=== PATIENT | male | born 1975 | race Caucasian/White ===

== ENCOUNTER 2017-08-29 14:21 | Emergency (ER) | payer OTHER ==
[2017-08-29] MEDS ORDERED: HYDROmorphone 1 MG/ML Syringe IM ONE (15:36)
--- NOTE | 2017-08-29 16:12 | EDM.PDOC ---
ED HPI GENERAL MEDICAL PROBLEM - General Chief Complaint: Flank Pain Stated Complaint: FALL Time Seen by Provider: 08/29/17 15:15 Source of Information: Reports: Patient, Family History Limitations: Reports: No Limitations - History of Present Illness INITIAL COMMENTS - FREE TEXT/NARRATIVE: 42-year-old male slipped on the ice and fell onto some aluminum tools, sawhorses , very hard onto his right flank. His wind was knocked out for quite some time, he felt nauseated, and now is having significant flank pain with a burning sensation. Some pain with breathing. Onset: Sudden Duration: Hour(s): (Within the last 2 hours) Location: Reports: Back (Right flank area) Severity: Moderate Worsens with: Reports: Movement Associated Symptoms: Denies: Confusion, Chest Pain, Cough, Diaphoresis, Loss of Appetite, Nausea/Vomiting, Shortness of Breath - Related Data Allergies Allergy/AdvReac Type Severity Reaction Status Date / Time No Known Allergies Allergy Verified 08/29/17 15:02 Home Meds: Home Meds Acetaminophen [Tylenol] 650 mg PO Q6H PRN 04/26/17 [History] Naproxen [IJD: Naproxen] 500 mg PO BIDAC 04/26/17 [History] SUMAtriptan [Imitrex] 50 mg PO ASDIRECTED PRN 04/26/17 [History] Sertraline [Zoloft] 50 mg PO BEDTIME 08/29/17 [History] Past Medical History Musculoskeletal History: Reports: Other (See Below) Other Musculoskeletal History: left knee pain Neurological History: Reports: Head Trauma, Migraines Psychiatric History: Reports: Depression Other Psychiatric History: 2nd attempt at self harm related to PTSD Dermatologic History: Reports: Other (See Below) Other Dermatologic History: hives Social & Family History - Tobacco Use Smoking Status *Q: Former Smoker Years of Tobacco use: 1 Packs/Tins Daily: 1 Used Tobacco, but Quit: Yes Month Tobacco Last Used: september - Caffeine Use Caffeine Use: Reports: Coffee - Alcohol Use Days Per Week of Alcohol Use: 7 Number of Drinks Per Day: 3 Total Drinks Per Week: 21 - Recreational Drug Use Recreational Drug Use: No Drug Use in Last 12 Months: Yes Recreational Drug Type: Reports: Marijuana/Hashish Recreational Drug Use Frequency: Monthly Recreational Drug Last Use: [facility] DORENE PRASAD GENERAL - Review of Systems Review Of Systems: See Below Constitutional: Denies: Fever, Chills Respiratory: Reports: Pleuritic Chest Pain (A mild amount of pleuritic chest pain only with a deep breath). Denies: Shortness of Breath Cardiovascular: Reports: Chest Pain (Only with a deep breath) GI/Abdominal: Denies: Abdominal Pain, Nausea, Vomiting : Reports: No Symptoms Musculoskeletal: Reports: Other (Some pain radiating down the right flank to the right buttock but not down the extremities) Skin: Reports: Bruising (A small amount of erythema has developed on the right flank) Neurological: Reports: Paresthesia (A burning sensation on the skin has been persistent on the right flank and right buttock) ED EXAM, GENERAL - Physical Exam Exam: See Below Exam Limited By: No Limitations General Appearance: Alert, Mild Distress (Fairly uncomfortable) Neck: Supple, Non-Tender Respiratory/Chest: No Respiratory Distress, Lungs Clear Cardiovascular: Regular Rate, Rhythm GI/Abdominal: Soft, Non-Tender Back Exam: CVA Tenderness (R) (Very sore in the right CVA area and down into the lower right flank). No: Vertebral Tenderness Extremities: Normal Inspection Course - Vital Signs Last Recorded V/S: Last Vital Signs Temp 97.5 F 08/29/17 16:15 Pulse 71 08/29/17 16:15 Resp 16 08/29/17 16:15 BP 113/67 08/29/17 16:15 Pulse Ox 99 08/29/17 16:15 - Orders/Labs/Meds Labs: Laboratory Tests 08/29/17 08/29/17 Range/Units 15:44 15:44 WBC 7.9 (4.5-11.0) K/uL RBC 4.79 (4.30-5.90) M/uL Hgb 14.8 (12.0-15.0) g/dL Hct 41.3 (40.0-54.0) % MCV 86 (80-98) fL MCH 31 (27-31) pg MCHC 36 (32-36) % Plt Count 197 (150-400) K/uL Neut % (Auto) 70 H (36-66) % Lymph % (Auto) 20 L (24-44) % [place] % (Auto) 8 H (2-6) % Eos % (Auto) 2 (2-4) % Baso % (Auto) 0 (0-1) % Sodium 140 (140-148) mmol/L Potassium 3.8 (3.6-5.2) mmol/L Chloride 104 (100-108) mmol/L Carbon Dioxide 28 (21-32) mmol/L Anion Gap 7.7 (5.0-14.0) mmol/L BUN 16 (7-18) mg/dL Creatinine 1.2 (0.8-1.3) mg/dL Est Cr Clr Drug Dosing 80.19 mL/min Estimated GFR (MDRD) > 60 (>60) Glucose 104 (74-106) mg/dL Calcium 9.0 (8.5-10.1) mg/dL Meds: Medications Discontinued Medications Generic Name Dose Route Start Last Admin Trade Name Gerardo PRN Reason Stop Dose Admin Hydromorphone HCl 1 mg 08/29/17 15:36 08/29/17 15:48 Dilaudid IM 08/29/17 15:37 1 mg ONETIME ONE Administration Sodium Chloride 100 mls @ 3 mls/sec 08/29/17 16:45 08/29/17 16:49 Normal Saline IV 3 mls/sec ASDIRECTED CHEN Administration Iopamidol 147 ml 08/29/17 16:45 08/29/17 16:49 Isovue-300 (61%) IV 147 ml . DIRECTED CHEN Administration Ketorolac Tromethamine 30 mg 08/29/17 17:08 08/29/17 17:17 Toradol IVPUSH 08/29/17 17:09 30 mg ONETIME ONE Administration - Re-Assessments/Exams Free Text/Narrative Re-Assessment/Exam: 08/29/17 17:41 CBC and BMP were obtained. An IV was placed and the patient was given normal saline after 1 mg of Dilaudid IM. After labs returned normal, the patient had an abdomen and pelvis CT scan with IV contrast which was also normal. He was then given 30 mg of Toradol IV and discharged with 10 additional doses of hydrocodone and encouraged to increase activity as tolerated. He can always return if symptoms worsen or he develops other concerns. Departure - Departure Time of Disposition: 18:09 Disposition: Home, Self-Care 01 Condition: Good Clinical Impression: Contusion of flank and back Qualifiers: Encounter type: initial encounter Qualified Code(s): S30.1XXA - Contusion of abdominal wall, initial encounter - Discharge Information Instructions: Contusion, [id number] Referrals: Ward Brannon MD [Primary Care Provider] - Forms: ED Department Discharge Care Plan Goals: Take a regular dose of ibuprofen or naproxen and add stronger pain medications as directed if needed. Ice to the sore area for the first 48 hours may be beneficial, then heat is okay. Increase activity as tolerated and return anytime if symptoms worsen or you develop other concerns.
[2017-08-29 16:16] VITALS: BP 113/67
[2017-08-29] MEDS ORDERED: Iopamidol 612 MG/ML 150 ML Bottle IV SCH (16:45)
[2017-08-29] MEDS ORDERED: Sodium Chloride 0.9% 100 ML IV SCH (16:45)
[2017-08-29] MEDS ORDERED: Ketorolac 30 MG/ML SDV IVPUSH ONE (17:08)
== END 2017-08-29 18:00 | disposition home or self-care (01) ==
LOC: JP.ED 14:21
DX: S30.1XXA Contusion of abdominal wall, initial encounter (principal); Z87.891 Personal history of nicotine dependence; W00.0XXA Fall on same level due to ice and snow, initial encounter
CPT/HCPCS: 36415; 74177; 80048; 85025; 96372; 96374; 99284; J1170; J1885; J7030

== ENCOUNTER 2017-10-30 05:31 | Day surgery (SDC) | payer OTHER ==
[2017-10-30] MEDS ORDERED: Lactated Ringers 1,000 ML IV SCH (06:30)
[2017-10-30] MEDS ORDERED: ceFAZolin 2 GM in Premix Bag 1 BAG IV ONE (06:30)
[2017-10-30] MEDS ORDERED: Bupivacaine 0.25%/EPINEPHrine 1:200,000 30 ML SDV ONE (06:52)
[2017-10-30] MEDS ORDERED: Povidone-Iodine 10% Soln 118.25 ML Bottle ONE (06:52)
[2017-10-30] MEDS ORDERED: Gentamicin 40 MG/ML 2 ML Vial ONE (06:59)
[2017-10-30] MEDS ORDERED: Neostigmine Methylsulfate 1 MG/ML 5 ML Syringe ONE (07:20)
[2017-10-30] MEDS ORDERED: Rocuronium 50 MG/5 ML Vial ONE (07:20)
[2017-10-30] MEDS ORDERED: Glycopyrrolate 0.2 MG/ML 5 ML MDV ONE (07:20)
[2017-10-30] MEDS ORDERED: Propofol 200 MG/20 ML SDV ONE (07:20)
[2017-10-30] MEDS ORDERED: Ondansetron 4 MG/2 ML SDV ONE (07:20)
[2017-10-30] MEDS ORDERED: Succinylcholine 200 MG/10 ML MDV ONE (07:20)
[2017-10-30] MEDS ORDERED: Dexamethasone 4 MG/ML SDV ONE (07:20)
[2017-10-30] MEDS ORDERED: Lactated Ringers 1,000 ML ONE (08:01)
[2017-10-30] MEDS ORDERED: Ketorolac 60 MG/2 ML SDV ONE (08:59)
[2017-10-30] MEDS ORDERED: Acetaminophen/HYDROcodone 325-5 MG Tab PO ONE (10:05)
[2017-10-30 10:11] VITALS: BP 114/82
--- NOTE | 2017-10-30 13:40 | OR ---
DATE OF PROCEDURE: 10/30/2017 PREOPERATIVE DIAGNOSIS: Left knee anterior cruciate ligament tear. POSTOPERATIVE DIAGNOSIS: Left knee anterior cruciate ligament tear. PROCEDURE: Left knee anterior cruciate ligament reconstruction. SURGEON: Dwain Lee DO TRAFFIC CONTROL SUPERVISOR: OPHELIA Casey. ANESTHESIA: General endotracheal intubation. FLUID: Lactated Ringer solution. ESTIMATED BLOOD LOSS: Less than 10 mL. COMPLICATIONS: None. SPECIMEN: None. DISCHARGE DISPOSITION: Stable to PACU. INSTRUMENTATION: [facility] Visual.ly tibial screw, femoral unmanned aircraft systems roboticist, and allograft. INDICATIONS: The patient is well known to me. He is a and has been having knee pain for quite sometime. We have treated him nonoperatively for over a year with steroid injections. He got to the point where he is barely able to stand. Preoperative imaging confirmed the above-mentioned diagnosis. Risks and benefits of the procedure were explained to the patient, and informed consent was obtained. DETAILS OF PROCEDURE: The patient was seen preoperatively by myself and the Anesthesia staff in the preoperative holding area, where the operative site was marked. He was brought to the operative suite by the Anesthesia staff, where general anesthesia was administered. A well-padded tourniquet was placed on the left thigh. The right lower extremity was placed into a stirrup. The left lower extremity was placed into a gel-padded thigh diaz. The table was dropped. The left lower extremity was then prepped and draped in a sterile manner. Time-out was called, identifying the correct patient, the correct procedure, the correct site, and that antibiotics had begun within an appropriate period of time. A portal on the medial aspect of the patellar tendon just 1 cm distal to the patella was made, and then a lateral portal was made at the junction of the middle and lateral third of the patellar tendon. I then entered with the scope and found very little patellofemoral arthritis. I did not find a tear of the medial or lateral meniscus. I removed the infrapatellar fat pad. There was also large amount of fat pad that I believe was impinging in the joint on the medial side, where he was having the pain. This was removed. I then used an osteotome through the lateral portal to do a wall plasty and then removed that soft tissue using graspers and ricarda. I did use an ablation unit at times to control some small amount of bleeding. After this had been done, I made a horizontal incision 3 fingerbreadths distal to the joint line on the medial side for my tibial tunnel. I then inserted my Potts retractor, extended the knee, and then drilled the pin through. I did not like how it went too far posterior twice, so I just positioned it where I wanted it and then drilled the pin. This provided good position just anterior to the lateral meniscus. I then protected the tip with a curette and then reamed out the distal tibia over the K-wire. After this had been accomplished, I then used a guide that went to the posterior femur and then turned away from the PCL and then reamed this with the [place] reamer to 35 mm. I then removed the reamer and then took out any extra soft tissue with a shaver. We then prepared our allograft on our iOm[place]enne implant and then inserted it and then expanded the implant. I did sona 30 mm to where it was expanded. We then tensioned this using a tensioner, inserted the sleeve for the screw, and then, in approximately 20 degrees extension, placed our tibial screw. I then removed the tensioner and confirmed that there was a solid anterior stop with anterior drawer. We then let the rest of the fluid out of the knee and then closed our incisions with nylon sutures. We placed a sterile dressing and allowed the patient to awaken from anesthesia and taken to the PACU in stable condition. Physician psychological assistant, Carmen Jordan NP, played an essential role in assisting in this case, helping to position the patient, retract structures as needed, as well as suturing and cutting sutures as indicated. Her presence improved patient's safety and decreased operative time. Dwain Lee DO /[id number]
== END 2017-10-30 10:45 | disposition home or self-care (01) ==
LOC: JP.SDS 05:31
PROVIDERS: ATTEND Orthopaedic Surgery
DX: S83.512A Sprain of anterior cruciate ligament of left knee, initial encounter (principal); F32.9 Major depressive disorder, single episode, unspecified; Z79.899 Other long term (current) drug therapy; X58.XXXA Exposure to other specified factors, initial encounter
CPT/HCPCS: 29888; A9270; C1776; J0330; J0690; J1100; J1580; J1885; J2405; J2704; J2710; J3010; J7120

== ENCOUNTER 2019-12-03 14:52 | Emergency (ER) | payer OTHER ==
[2019-12-03 15:08] VITALS: BP 101/72; PULSE 103
[2019-12-03] MEDS ORDERED: Ketorolac 60 MG/2 ML SDV IM ONE (15:22)
[2019-12-03] MEDS ORDERED: Acetaminophen 500 MG Tab PO ONE (15:23)
--- NOTE | 2019-12-03 15:28 | EDM.PDOC ---
ED HPI GENERAL MEDICAL PROBLEM - General Chief Complaint: Lower Extremity Injury/Pain Stated Complaint: L KNEE PAIN Time Seen by Provider: 12/03/19 15:15 Source of Information: Reports: Patient History Limitations: Reports: Other (incomplete medical records) - History of Present Illness INITIAL COMMENTS - FREE TEXT/NARRATIVE: 44 yo male with a pHx of L knee ACL tear presents with knee pain and swelling. Denies acute injury. Was to the clinic and asked for an MRI from Dr. Brannon and is not sure if this has been scheduled or not. Needs something for pain. Took only a muscle relaxer so far for this. Onset: Gradual Duration: Day(s):, Getting Worse Location: Reports: Lower Extremity, Left Quality: Reports: Ache Severity: Moderate Improves with: Reports: Rest Worsens with: Reports: Movement Context: Reports: Other (see HPI) Associated Symptoms: Reports: No Other Symptoms Treatments SEASONING SPRAYER: Reports: Other (see below) (muscle relaxer) - Related Data Allergies Allergy/AdvReac Type Severity Reaction Status Date / Time No Known Allergies Allergy Verified 10/30/17 05:52 Home Meds: Home Meds Acetaminophen [Tylenol] 650 mg PO Q6H PRN 04/26/17 [History] Naproxen [IJD: Naproxen] 500 mg PO BIDAC 04/26/17 [History] SUMAtriptan [Imitrex] 50 mg PO ASDIRECTED PRN 04/26/17 [History] Acetaminophen/HYDROcodone [[place] 325-5 MG] 1 - 2 tab PO Q6H PRN #12 tab [Rx] Past Medical History Musculoskeletal History: Reports: Other (See Below) Other Musculoskeletal History: s/p lt ACL repair Neurological History: Reports: Head Trauma, Migraines Psychiatric History: Reports: Depression, PTSD Other Psychiatric History: 2nd attempt at self harm related to PTSD Endocrine/Metabolic History: Reports: Obesity/BMI 30+ Dermatologic History: Reports: Other (See Below) Other Dermatologic History: hives - Infectious Disease History Infectious Disease History: Reports: Chicken Pox - Past Surgical History Head Surgeries/Procedures: Reports: None Endocrine Surgical History: Reports: None Neurological Surgical History: Reports: None Musculoskeletal Surgical History: Reports: None Dermatological Surgical History: Reports: None Social & Family History - Family History Family Medical History: Noncontributory - Caffeine Use Caffeine Use: Reports: Coffee Review of Systems - Review of Systems Review Of Systems: See Below Constitutional: Reports: No Symptoms Musculoskeletal: Reports: Joint Pain (L knee), Joint Swelling (L knee) Skin: Reports: No Symptoms ED EXAM, GENERAL - Physical Exam Exam: See Below Exam Limited By: No Limitations General Appearance: Alert, WD/WN, No Apparent Distress Extremities: Limited Range of Motion (due to L knee effusion), Other (medial joint line pain. No apparent laxity.). No: Normal Inspection, Normal Range of Motion, Non-Tender, Increased Warmth Neurological: Alert, Oriented, CN II-XII Intact, Normal Cognition, No Motor/ Sensory Deficits Psychiatric: Normal Affect, Normal Mood Skin Exam: Warm, Dry, Intact, Normal Color, No Rash Course - Vital Signs Text/Narrative:: 6 inch TA applied. Crutches given. Last Recorded V/S: Last Vital Signs Temp 37.2 C 12/03/19 15:07 Pulse 103 H 12/03/19 15:07 Resp 16 12/03/19 15:07 BP 101/72 12/03/19 15:07 Pulse Ox 95 12/03/19 15:07 - Orders/Labs/Meds Meds: Medications Discontinued Medications Generic Name Dose Route Start Last Admin Trade Name Freq PRN Reason Stop Dose Admin Acetaminophen 1,000 mg 12/03/19 15:23 Tylenol Extra Strength PO 12/03/19 15:24 ONETIME ONE Ketorolac Tromethamine 60 mg 12/03/19 15:22 Toradol IM 12/03/19 15:23 ONETIME ONE Departure - Departure Time of Disposition: 15:45 Disposition: Home, Self-Care 01 Condition: Fair Clinical Impression: Knee effusion, left Acute medial meniscus tear Qualifiers: Encounter type: initial encounter Laterality: left Qualified Code(s): S83.242A - Other tear of medial meniscus, current injury, left knee, initial encounter Medial meniscus tear Qualifiers: Tear current or old: old Meniscus tear of knee type: unspecified type Laterality: left Qualified Code(s): M23.204 - Derangement of unspecified medial meniscus due to old tear or injury, left knee - Discharge Information *PRESCRIPTION DRUG MONITORING PROGRAM REVIEWED*: No *COPY OF PRESCRIPTION DRUG MONITORING REPORT IN PATIENT MAXIMUS: No Prescriptions: Acetaminophen/HYDROcodone [[place] 325-5 MG] 1 - 2 tab PO Q6H PRN #12 tab PRN Reason: Pain Instructions: Crutch Use, Adult, [id number], Meniscus Tear Referrals: Ward Brannon MD [Primary Care Provider] - Forms: ED Department Discharge Additional Instructions: Take ibuprofen 600 mg every 6 hrs with food for pain relief. Add either acetaminophen 1000 mg every 6 hrs or [place] for added relief. Crutch walking with no weight bearing. Someone will call you for an orthopedic appt. Wear TA for support. Sepsis Event Note - Focused Exam Vital Signs: Vital Signs Temp Pulse Resp BP Pulse Ox 12/03/19 15:07 37.2 C 103 H 16 101/72 95 Date Exam was Performed: 12/03/19 Time Exam was Performed: 15:38
== END 2019-12-03 16:18 | disposition home or self-care (01) ==
LOC: JP.ED 14:52
DX: M23.204 Derangement of unspecified medial meniscus due to old tear or injury, left knee (principal); G43.909 Migraine, unspecified, not intractable, without status migrainosus; E66.9 Obesity, unspecified; Z68.34 Body mass index [BMI] 34.0-34.9, adult
CPT/HCPCS: 96372; 99283; A9270; J1885

== ENCOUNTER 2019-12-30 05:56 | Day surgery (SDC) | payer OTHER ==
[2019-12-30] MEDS ORDERED: Nozin Nasal Sanitizer NASBOTH ONE (06:30)
[2019-12-30] MEDS ORDERED: Lactated Ringers 1,000 ML IV SCH (06:30)
[2019-12-30] MEDS ORDERED: ceFAZolin 2 GM in Premix Bag 1 BAG IV ONE (06:30)
[2019-12-30] MEDS ORDERED: Bupivacaine 0.5% 30 ML SDV ONE (06:41)
[2019-12-30] MEDS ORDERED: Ondansetron 4 MG/2 ML SDV ONE (07:19)
[2019-12-30] MEDS ORDERED: Dexamethasone 4 MG/ML SDV ONE (07:19)
[2019-12-30] MEDS ORDERED: fentaNYL 250 MCG/5 ML SDV ONE ×2 (07:19→10:42)
[2019-12-30] MEDS ORDERED: Neostigmine Methylsulfate 1 MG/ML 5 ML Syringe ONE (07:19)
[2019-12-30] MEDS ORDERED: Rocuronium 50 MG/5 ML Vial ONE (07:19)
[2019-12-30] MEDS ORDERED: Glycopyrrolate 0.2 MG/ML 5 ML MDV ONE (07:19)
[2019-12-30] MEDS ORDERED: Propofol 200 MG/20 ML SDV ONE (07:19)
[2019-12-30] MEDS ORDERED: Lactated Ringers 1,000 ML ONE (09:58)
[2019-12-30] MEDS ORDERED: Acetaminophen/HYDROcodone 325-10 MG Tab PO ONE ×2 (11:58→12:25)
[2019-12-30] MEDS ORDERED: Ondansetron 4 MG/2 ML SDV IVPUSH ONE (12:31)
[2019-12-30 13:06] VITALS: BP 119/85; PULSE 93
--- NOTE | 2020-01-06 18:38 | OR ---
DATE OF PROCEDURE: 12/30/2019 SURGEON: Jose Luis Alonzo MD PREOPERATIVE DIAGNOSIS: Failed anterior cruciate ligament graft, left knee. POSTOPERATIVE DIAGNOSES: Failed anterior cruciate ligament graft, left knee. Chondromalacia, patellofemoral joint, grade 2. PROCEDURE: Revision anterior cruciate ligament reconstruction using bone- patellar tendon- bone allograft. ANESTHESIA: General. INDICATIONS: Servando is a 44-year-old gentleman who had previously undergone ACL reconstruction using soft tissue allograft. He had failure of the graft postoperatively and has had persistent instability for the past couple of years. It has gotten progressively worse. He has intermittent episodes of giving way and a constant dull pain with intermittent sharper pain. Examination and imaging are consistent with failure of previous ACL graft. He now presents for revision reconstruction. Risks, benefits, potential complications of the procedure were discussed. DESCRIPTION OF PROCEDURE: After adequate anesthesia was obtained, the patient was placed supine with a tourniquet about the left upper thigh. Left leg was prepped and draped in a sterile fashion. Leg was exsanguinated and tourniquet inflated to 300 mmHg pressure. Standard inferior, anterior, medial, lateral portals were established. Scope was introduced and the knee was examined. This revealed some grade 2 changes in the patellofemoral joint, primarily on the trochlea. No full-thickness cartilage loss. Patella tracked well with no evidence of malalignment. Medial compartment showed some minor fraying along the free edge of the medial meniscus. Also had some minor chondromalacia in the medial femoral condyle, grade 1 and grade 2. ACL showed complete failure with suture material present within the intercondylar notch. Lateral compartment showed an intact meniscus. No fraying and no articular cartilage damage. Using combination of a punch basket and shaver, the remainder of the previous ACL was debrided. There was some overgrowth of the notch and a notchplasty was performed using combination of curette and a areli. This allowed good visualization of the femoral tunnel. Femoral tunnel position was adequate. The previous incision over the tibia was utilized. This was taken down through the subcutaneous tissues to the level of the tibial metaphysis. A point was selected slightly medial to the previous tunnel in an attempt to avoid the hardware in place. ACL guide was placed through the medial portal and set to come out slightly more anterior than the previous tunnel. A guide pin was then drilled and position was found to be quite good. Curette was placed over the top of the guide pin to prevent penetration and a 10 mm reamer was then placed over the guide pin and drilled up into the joint. Loose fragments were removed. Attention was then returned to the femoral notch. Soft tissues were cleared from around the previous fixation device. The screw mechanism for the AperFix device was localized. An attempt was made to place the highway truck driver into this, however, due to the different angle used for the tibial tunnel, this could not be readily accomplished. Guide pin was then placed through the tibial tunnel and into the femoral tunnel lateral to the AperFix device and brought out through the skin. Beginning with a 6 mm reamer, tunnel was then reamed to a depth of 35 mm up to approximately 9 mm. This allowed some motion of the AperFix device and a pituitary ronguer was then utilized to unscrew the metal pin and the remaining peak portions of the device were then removed. The tunnel was then further reamed to a size 10. Attention was then turned to the patellar tendon allograft. This was measured and cut down to a size 11 bone plug on each end. Drill holes were placed through each bone plug and guide sutures were then placed with FiberWire sutures used for the femoral plug , Ethibond used for the tibial. Graft was then kept moist on the back table and attention was returned to the knee. A 10.5 mm reamer was then placed over this guide pin. Both tunnels were just slightly undersized to allow some press-fit on the graft. The Rigidfix guide was then placed and set to 35 mm in the tunnel. Two lateral peg guides were drilled into the femur. Rigidfix guide was then removed. The graft was then passed through the tibial tunnel and into the femoral tunnel to the appropriate depth, which was visualized with the scope. Drill was then passed through the 2 guides and the 2 transfixing pins were then placed. Knee was taken through range of motion and while tensioning the graft, the graft became dislodged. Further evaluation revealed that the bone plug had settled into the space occupied by the previous AperFix device and that the transfixing pins had not penetrated into the bone plug. Graft was then removed. A guide pin was then placed up into the space left by the AperFix device in a [place] screw was then screwed up into this. A long guide pin was then replaced adjacent to this and starting with the smaller reamers and reaming up slowly, the tunnel was reamed once again to a depth of 35 mm. The Rigidfix device was placed once again and 2 cannulas were again placed. The graft was then passed with the snug fit adjacent to the interference screw. Drill was then placed through the cannulas and through the bone graft and transfixing pins were placed. Knee was again taken through range of motion with tension and no motion was noted with the solid fixation. A guide pin was then placed into the tibial tunnel and a tap was utilized. The knee was then slightly flexed and a posterior drawer applied with tension on the graft and a 10 x 35 mm [place]erie interference screw was placed with good fixation. Scope was reintroduced into the knee. Graft was in good position with excellent tension. There was no evidence of impingement with full extension. All loose fragments were removed. Knee was drained and the scope was withdrawn. Small portion of the tibial bone plug, which was proud over the tibia was removed with a rongeur. Tibial incision was then closed with 2-0 Vicryl and a running 3-0 Monocryl. Port sites were closed with 3-0 Monocryl and Steri-Strips were applied. All wounds were then injected with Marcaine and a sterile dressing was applied. The patient tolerated the procedure well. There were no complications. He was taken from the operating room in stable condition. Jose Luis Alonzo MD /[id number]
== END 2019-12-30 13:40 | disposition home or self-care (01) ==
LOC: JP.SDS 05:56
PROVIDERS: ATTEND Specialist
DX: T84.490A Other mechanical complication of muscle and tendon graft, initial encounter (principal); S83.512D Sprain of anterior cruciate ligament of left knee, subsequent encounter; S83.242D Other tear of medial meniscus, current injury, left knee, subsequent encounter; M22.42 Chondromalacia patellae, left knee; G43.909 Migraine, unspecified, not intractable, without status migrainosus; E66.9 Obesity, unspecified; X58.XXXD Exposure to other specified factors, subsequent encounter; Z68.33 Body mass index [BMI] 33.0-33.9, adult
CPT/HCPCS: 29888; 36415; 80053; 85027; A9270; C1713; J0690; J1100; J2405; J2704; J2710; J3010; J3490; J7120

== ENCOUNTER 2020-04-13 05:59 | Day surgery (SDC) | payer OTHER ==
[2020-04-13] MEDS ORDERED: Bupivacaine 0.5% 30 ML SDV ONE (06:54)
[2020-04-13] MEDS ORDERED: Lactated Ringers 1,000 ML IV SCH (07:00)
[2020-04-13] MEDS ORDERED: Nozin Nasal Sanitizer NASBOTH ONE (07:00)
[2020-04-13] MEDS ORDERED: Dexamethasone 4 MG/ML SDV ONE (07:13)
[2020-04-13] MEDS ORDERED: Ondansetron 4 MG/2 ML SDV ONE (07:13)
[2020-04-13] MEDS ORDERED: Rocuronium 50 MG/5 ML Vial ONE (07:13)
[2020-04-13] MEDS ORDERED: Neostigmine Methylsulfate 1 MG/ML 5 ML Syringe ONE (07:13)
[2020-04-13] MEDS ORDERED: Propofol 200 MG/20 ML SDV ONE (07:13)
[2020-04-13] MEDS ORDERED: Glycopyrrolate 0.2 MG/ML 5 ML MDV ONE (07:13)
[2020-04-13] MEDS ORDERED: fentaNYL 250 MCG/5 ML SDV ONE (07:13)
[2020-04-13] MEDS ORDERED: ceFAZolin 2 GM in Premix Bag 1 BAG IV ONE (07:15)
[2020-04-13] MEDS ORDERED: Acetaminophen/HYDROcodone 325-5 MG Tab PO ONE (09:19)
[2020-04-13 10:25] VITALS: BP 108/75; PULSE 56
--- NOTE | 2020-04-13 13:21 | OR ---
DATE OF PROCEDURE: 04/13/2020 SURGEON: Jose Luis Alonzo MD PREOPERATIVE DIAGNOSIS: Complex tear of medial meniscus, left knee. POSTOPERATIVE DIAGNOSES: 1. Complex tear of medial meniscus, left knee. 2. Partial tear of anterior cruciate ligament graft. 3. 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 PROCEDURES: Arthroscopy of left knee with partial medial meniscectomy and chondroplasty of medial femoral condyle and trochlea. INDICATIONS: Servando is a 45-year-old male with a history of previous knee injuries, including ACL tear with reconstruction and a revision ACL reconstruction. He was doing well until he jumped onto his left knee, experiencing pain in the medial aspect. MRI reveals a complex tear of the medial meniscus. ACL graft appears to be intact. He is therefore taken to the operating room for arthroscopy of the left knee with partial meniscectomy versus repair of the medial meniscus. Risks, benefits, and potential complications were discussed. DESCRIPTION OF PROCEDURE: After adequate anesthesia was obtained, the patient was placed supine with a tourniquet about the left upper thigh. Left leg was prepped and draped in a sterile fashion. Leg was exsanguinated and tourniquet inflated to 300 mmHg. Standard inferior, medial and lateral portals were established. Patellofemoral joint was inspected, which revealed intact cartilage on the patella. However, the trochlea, central portion, showed grade 2 and 3 changes with some loose articular flaps. No full-thickness loss. This was an area measuring approximately 1 cm x 1.5 cm. Shaver was introduced and light debridement was done over the trochlea, removing the loose chondral flaps. Moving into the medial compartment, a complex tear of the posterior horn up to the midbody was noted. Grade 2 and early grade 3 changes were noted of the medial femoral condyle. Shaver was used to perform a chondroplasty of medial femoral condyle, removing all loose fragments. A parrot- beak-type flap was debrided from the meniscus, revealing a horizontal cleavage extension with further degenerative-type tear, more into the posterior horn. This was debrided back to a stable margin with a combination of punch baskets and shaver. All loose fragments were removed. Examination of the intercondylar notch revealed a partial tear of the ACL graft, some of the anterior fibers. The majority of the graft, however, was intact. Approximately, 75% to 80% of the graft remained. Torn fibers were debrided with a shaver. Lateral compartment showed no damage to the meniscus or articular surfaces. The knee was inspected once again. All loose fragments were removed. Knee was drained. Scope was withdrawn. Port sites were closed in a standard fashion and sterile dressing was applied. Prior to application of the dressing, knee was infiltrated with 0.25% Marcaine. The patient tolerated the procedure well. There were no complications. He was taken from the operating in stable condition. Jose Luis Alonzo MD /[id number]
== END 2020-04-13 10:30 | disposition home or self-care (01) ==
LOC: JP.SDS 05:59
PROVIDERS: ATTEND Specialist
DX: S83.232A Complex tear of medial meniscus, current injury, left knee, initial encounter (principal); S83.512A Sprain of anterior cruciate ligament of left knee, initial encounter; M94.262 Chondromalacia, left knee; F43.10 Post-traumatic stress disorder, unspecified; E66.9 Obesity, unspecified; Z68.34 Body mass index [BMI] 34.0-34.9, adult; X58.XXXA Exposure to other specified factors, initial encounter
CPT/HCPCS: 29881; 36415; 80048; 85027; A9270; J0690; J1100; J2405; J2704; J2710; J3010; J3490; J7120

== ENCOUNTER 2020-11-16 08:14 | Day surgery (SDC) | payer OTHER ==
[2020-11-16] MEDS ORDERED: Nozin Nasal Sanitizer NASBOTH ONE (08:20)
[2020-11-16] MEDS ORDERED: ceFAZolin 2 GM in Premix Bag 1 BAG IV ONE (08:20)
[2020-11-16] MEDS ORDERED: fentaNYL 250 MCG/5 ML SDV ONE ×2 (08:28→11:22)
[2020-11-16] MEDS ORDERED: Ondansetron 4 MG/2 ML SDV ONE (08:29)
[2020-11-16] MEDS ORDERED: Rocuronium 50 MG/5 ML Vial ONE (08:29)
[2020-11-16] MEDS ORDERED: Succinylcholine 200 MG/10 ML MDV ONE (08:29)
[2020-11-16] MEDS ORDERED: Propofol 200 MG/20 ML SDV ONE (08:29)
[2020-11-16] MEDS ORDERED: Dexamethasone 4 MG/ML SDV ONE (08:29)
[2020-11-16] MEDS ORDERED: Neostigmine Methylsulfate 1 MG/ML 5 ML Syringe ONE (08:29)
[2020-11-16] MEDS ORDERED: Glycopyrrolate 0.2 MG/ML 5 ML MDV ONE (08:29)
[2020-11-16] MEDS ORDERED: Lactated Ringers 1,000 ML IV SCH (09:00)
[2020-11-16] MEDS ORDERED: Bupivacaine 0.5% 30 ML SDV ONE (10:02)
[2020-11-16] MEDS ORDERED: Acetaminophen/oxyCODONE 325-5 MG Tab PO ONE (13:40)
[2020-11-16 14:15] VITALS: BP 125/86; PULSE 76
--- NOTE | 2020-11-21 20:02 | OR ---
DATE OF PROCEDURE: 11/16/2020 SURGEON: Jose Luis Alonzo MD PREOPERATIVE DIAGNOSES: 1. Partial anterior cruciate ligament tear, right knee. 2. Medial meniscus tear, right knee. POSTOPERATIVE DIAGNOSES: 1. Severe partial anterior cruciate ligament tear, right knee. 2. Chondromalacia, medial femoral condyle, grade 3. PROCEDURES: 1. Arthroscopy, right knee with arthroscopic-assisted anterior cruciate ligament reconstruction using [id number] allograft. 2. Chondroplasty, medial femoral condyle. ASSISTANT COUNTY ENGINEER: EB Gutierrez. ANESTHESIA: General. INDICATIONS: Servando is a 45-year-old gentleman who sustained an injury to his right knee resulting in persistent pain and sensation of instability with giving way and catching. Examination and imaging are consistent with an oblique tear of the medial meniscus and at least a partial tear of the ACL. He has moderate laxity on Freeman and drawer. Now presents for arthroscopy of the right knee with evaluation of the medial meniscus and probable repair as well as evaluation of the ACL and reconstruction as necessary. Risks, benefits, potential complications of the procedure were discussed. DESCRIPTION OF PROCEDURE: After adequate anesthesia was obtained, patient placed supine with a tourniquet about the right upper thigh. Right leg was prepped and draped in a sterile fashion. Leg was exsanguinated and tourniquet inflated to 300 mmHg pressure. Assistance of physician administrative sales assistant was utilized for placement of the ACL graft, graft preparation and assistance with drilling and scope visualization during the procedure. Anterior, medial and lateral portals were established. Scope was introduced. The knee was inspected. This revealed intact articular cartilage on the patella and trochlear groove. Medial compartment revealed grade 2 and 3 changes in medial femoral condyle with a flap of articular cartilage more in the posterior aspect. Inspection of the medial meniscus revealed no evidence of instability and the region of the previous tear noted on the MRI was thoroughly probed and inspected and found to have healed. The scope was introduced and a chondroplasty was performed of the medial femoral condyle, removing loose articular flap and smoothing the edges as best as possible. Evaluation of intercondylar notch revealed the ACL to be lax and at least a tear of the anteromedial bundle which had scarred down on to the posterior bundle and PCL. Visualization of the ACL during drawer procedure revealed significant laxity. The scope was withdrawn. The knee was evaluated again with laxity on Freeman and drawer and a positive pivot shift. A decision was made to proceed with the ACL reconstruction. The scope was reintroduced. The lateral compartment was evaluated and the articular surfaces and lateral meniscus were intact. The torn segment of the ACL was debrided from the posterolateral notch and delineated the footprint and step-off point posteriorly. ACL guide for the tibia was placed. Incision was made medial of the tibial tuberosity. Guide was secured and the pin was then drilled. This was brought up to the footprint of the ACL. A 10 mm reamer was placed over this with a curette used to prevent penetration of the guide pin and held by the administrative sales assistant. All loose fragments were removed. The scope was then withdrawn and attention was turned to the ACL graft. Rico- patella thawed on the back table and oscillating saw was used to trim the bone blocks down to 10 mm. [place] was then used to shape these into dowels until they had passed through the 10 mm spacer. Drill holes were placed through each of the bone blocks and FiberWire suture was placed through the femoral side and Ethibond suture through the tibial side. This was then kept moist on the back table. The scope was reinserted and a guide pin was then placed through the tibial tunnel and into the posterolateral femoral tunnel approximately 5 mm anterior to the posterior drop-off point and brought out to the anterior thigh. A 10 mm [place] ring reamer was placed over this and drilled to a depth of 30 mm. Horseshoe guide for the RigidFix was placed over the guide pin and tapped into a depth of 30 mm. 2 cannulas were then drilled into the lateral femoral condyle and the guide was removed. Patellar graft was then delivered into position, secured into the femoral tunnel and position confirmed arthroscopically. Tension was kept on the sutures. Drill was placed through the lateral cannulas and the RigidFix pins were then secured with the plunger. Cannulas were removed. Excellent fixation was obtained with these. Tension was placed through the graft in the tibial tunnel and the knee was cycled through multiple cycles of flexion and extension. A guide pin was then placed into the tibial tunnel. The tunnel was tapped and a 9 x 23 mm Valerie interference screw was placed and buried flush with the tibial surface. The knee was taken through range of motion. The graft was viewed arthroscopically, showed no impingement in the tunnel and excellent tension. He has had no laxity on drawer after completion of procedure. Small portion of the tibial graft was exposed and this was removed with a rongeur. All loose fragments were removed from the knee. Port sites were closed in standard fashion. The graft site over the tibia was closed with 2-0 Vicryl and a running 3-0 Monocryl. Steri-Strips were applied. Incisions were infiltrated with 0.5% Marcaine. Sterile dressing was placed with a light compressive dressing and a knee brace locked at -10 degrees of extension. The patient tolerated procedure very well. There were no complications, taken from the operating stable condition. Jose Luis Alonzo MD /[id number] MTDD
== END 2020-11-16 14:30 | disposition home or self-care (01) ==
LOC: JP.SDS 08:14
PROVIDERS: ATTEND Specialist
DX: S83.511A Sprain of anterior cruciate ligament of right knee, initial encounter (principal); S83.241A Other tear of medial meniscus, current injury, right knee, initial encounter; M94.261 Chondromalacia, right knee
CPT/HCPCS: 29888; 36415; 80053; 85027; A9270; C1713; J0330; J0690; J1100; J2405; J2704; J2710; J3010; J3490; J7120

== ENCOUNTER 2021-05-10 08:30 | Day surgery (SDC) | payer OTHER ==
[~2021-05-10 08:30] MED LIST: Dexamethasone 4 MG/ML SDV ONE; Glycopyrrolate 0.2 MG/ML 5 ML MDV ONE; Lactated Ringers 1,000 ML IV SCH; Neostigmine Methylsulfate 1 MG/ML 5 ML Syringe ONE; Nozin Nasal Sanitizer NASBOTH ONE; Ondansetron 4 MG/2 ML SDV ONE; Propofol 200 MG/20 ML SDV ONE; Rocuronium 50 MG/5 ML Vial ONE; Succinylcholine 200 MG/10 ML MDV ONE; ceFAZolin 2 GM in Premix Bag 1 BAG IV ONE; fentaNYL 250 MCG/5 ML SDV ONE
[2021-05-10] MEDS ORDERED: Bupivacaine 0.5% 30 ML SDV ONE (09:34)
[2021-05-10] MEDS ORDERED: fentaNYL 100 MCG/2 ML SDV ONE (11:54)
[2021-05-10] MEDS ORDERED: Acetaminophen/oxyCODONE 325-5 MG Tab PO PRN (13:34)
[2021-05-10] MEDS ORDERED: Acetaminophen/HYDROcodone 325-5 MG Tab PO PRN (13:55)
[2021-05-10 16:15] VITALS: BP 125/79; PULSE 71
--- NOTE | 2021-05-11 08:14 | PCM.SN.2 ---
- Free Text/Narrative Note: Called patient for update this morning, as he reported bloody saturation of TA wrap dressing last night on left knee. Patient notes his removed saturated dressing, cleaned knee, and applied new pressure dressing and TA wrap to left knee. Denied any purulent drainage. Patient reports icing and elevating left k nee overnight. Dressing is dry and intact this morning. Endorsed pain in left knee, but tolerable with [place]. Denied fevers, chills, nausea, nor emesis. Patient encouraged to keep the pressure dressing and TA wrap on for 24 hours. If dressing becomes saturated again, encouraged to call clinic for further guidance.
--- NOTE | 2021-05-15 18:49 | OR ---
DATE OF PROCEDURE: 05/10/2021 SURGEON: Jose Luis Alonzo MD PREOPERATIVE DIAGNOSIS: Failed ACL graft with retained hardware. POSTOPERATIVE DIAGNOSES: Failed ACL graft with retained hardware, minor medial meniscus tear, grade 2 and 3 chondromalacia of medial femoral condyle. PROCEDURES: Arthroscopy, left knee with minor debridement of meniscus; debridement of previous ACL grafts, femoral tunnel, and tibial plateau with bone grafting of bone defects using allograft bone; cortical cancellous graft. ACURA SALES CONSULTANT: EB Buitrago ANESTHESIA: General. INDICATIONS: Servando is a 46-year-old gentleman with a history of previous ACL tear and reconstruction. This went on to fail and had a revision of the ACL. This also went on to an early failure and he has had persistent instability. Increasing instability and pain recently. Due to the previous 2 grafts, it was determined that any additional reconstruction would be difficult and adequate tunnel position and fixation may not be obtained. He is therefore undergoing a 2-stage surgery with removal of previous graft material and fixation devices, grafting of the tibia and femoral tunnels in order to have a solid foundation for planned revision ACL graft. Risks, benefits, potential complications were discussed. DESCRIPTION OF PROCEDURE: After adequate anesthesia was obtained, the patient was placed supine with a tourniquet about the left upper thigh. Left leg was prepped and draped in a sterile fashion. Leg was exsanguinated and tourniquet inflated to 300 mmHg pressure. Previous anterior, medial, and lateral portals were established. The scope was introduced. Evaluation of the knee reveals the previous ACL graft to be in place and intact, however, with significant laxity. Inspection of the remainder of the joint revealed intact articular cartilage and meniscus laterally. Medial compartment showed minimal residual medial meniscus with a very small degenerative tear in the midbody which was debrided lightly with a shaver. The articular cartilage shows grade 2 and 3 thinning without full- thickness loss on the medial femoral condyle and grade 2 thinning of the tibial plateau. Patellofemoral joint shows grade 2 changes primarily in the trochlear groove. Using combination of a punch basket and shaver, the ACL was debrided. Its insertion point in the femoral tunnel was debrided with a shaver and curette. Once the exposed portion of the graft had been debrided, attention was then turned to the tibia. A previous incision was utilized over the tibial metaphysis, carried down to the tibia. ACL guide was utilized to approximate the previous graft. A guide pin was placed, brought up out of the tibial tunnel. This was sequentially reamed up to 10 mm, removing significant portions of soft tissue graft. More laterally, one of the Valerie interference screws was identified and removed. A 2nd tunnel was made over a drill guide and sequentially reamed. A portion of the previous AperFix device was identified and removed. Multiple passes with a 10 mm reamer were placed removing soft tissue graft. A guide pin was advanced into the femoral tunnel and again the reamers were used sequentially from smaller to larger getting up to 10 mm drilling out the previous soft tissue portion of the graft. Portions of the Valerie screw were encountered and fragmented and removed. Curettes were used in the tibial metaphysis removing additional previous soft tissue graft material. Once this was accomplished, the tibial metaphysis and tunnels were grafted with cortical cancellous chips with allograft bone. These were packed in place with a bone tamp completely filling the defects. The end of a 3 mL syringe was cut off. The syringe was filled with corticocancellous graft and the syringe was used to deliver the graft into the femoral tunnel. This was additionally packed and the process repeated filling the femoral tunnel. All loose bony fragments were removed with the shaver. Port sites were closed with 3-0 Vicryl. The tibial incision was closed with 0 Vicryl in the deep layer, 2-0 Vicryl, and running 3-0 Monocryl. Steri- Strips were applied. Wounds were infiltrated with 0.5% Marcaine and a sterile dressing was applied. The patient tolerated the procedure very well. There were no complications. Taken from the operating room in stable condition. Jose Luis Alonzo MD /[id number] ANDREY
== END 2021-05-10 14:45 | disposition home or self-care (01) ==
LOC: JP.SDS 08:30
PROVIDERS: ATTEND Specialist
DX: T84.490A Other mechanical complication of muscle and tendon graft, initial encounter (principal); M23.204 Derangement of unspecified medial meniscus due to old tear or injury, left knee; M94.262 Chondromalacia, left knee; Z87.891 Personal history of nicotine dependence; E66.9 Obesity, unspecified; Z68.32 Body mass index [BMI] 32.0-32.9, adult
CPT/HCPCS: 29877; 36415; 80048; 85027; A9270; J0330; J0690; J1100; J2405; J2704; J2710; J3010; J3490; J7120

== ENCOUNTER 2021-10-03 11:52 | Emergency (ER) | payer OTHER ==
--- NOTE | 2021-10-03 12:31 | EDM.PDOCBH ---
ED HPI GENERAL MEDICAL PROBLEM - General Chief Complaint: Behavioral/Psych Stated Complaint: EVAL [facility] Time Seen by Provider: 10/03/21 12:15 Source of Information: Reports: Patient, EMS, Old Records History Limitations: Reports: No Limitations - History of Present Illness INITIAL COMMENTS - FREE TEXT/NARRATIVE: 46 yo male presents via EMS with suicidal ideation. [facility] is [facility] with a dx of PTSD from his time in the . Had suicidal ideation earlier today and was considering shooting himself. EMS gave IV Versed for hyperventilation with cramping which is now better. 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) (Versed IV) Generalized Pain Score (Numeric/FACES): 10 - Related Data Allergies Allergy/AdvReac Type Severity Reaction Status Date / Time No Known Allergies Allergy Verified 10/03/21 12:20 Home Meds: Home Meds Acetaminophen [Tylenol] 650 mg PO Q6H PRN 04/26/17 [History] SUMAtriptan [Imitrex] 50 mg PO ASDIRECTED PRN 04/26/17 [History] Ibuprofen 800 mg PO BID 12/03/19 [History] polyethylene glycoL 3350 [MiraLAX] 17 gm PO DAILY 12/09/19 [History] diphenhydrAMINE [Benadryl] 25 mg PO DAILY 11/16/20 [History] Omeprazole 20 mg PO DAILY 10/03/21 [History] Past Medical History Musculoskeletal History: Reports: Other (See Below) Other Musculoskeletal History: L knee pain/injury 01/10/21 Neurological History: Reports: Head Trauma, Migraines, Other (See Below) Other Neuro History: TBI Psychiatric History: Reports: Depression, PTSD, Suicidal Ideation Other Psychiatric History: 2nd attempt at self harm related to PTSD Endocrine/Metabolic History: Reports: Obesity/BMI 30+ Dermatologic History: Reports: Other (See Below) Other Dermatologic History: hives - Infectious Disease History Infectious Disease History: Reports: Chicken Pox - Past Surgical History Head Surgeries/Procedures: Reports: None Endocrine Surgical History: Reports: None Neurological Surgical History: Reports: None Musculoskeletal Surgical History: Reports: Arthroscopic Knee Other Musculoskeletal Surgeries/Procedures:: full ACL replacement. s/p L knee revision 12/23/19. s/p R ACL and meniscus repair 10/26/20. left knee scope 05/10/21 Dermatological Surgical History: Reports: None Social & Family History - Family History Family Medical History: No Pertinent Family History - Caffeine Use Caffeine Use: Reports: Coffee, Soda ED ROS GENERAL - Review of Systems Review Of Systems: See Below Constitutional: Reports: No Symptoms HEENT: Reports: No Symptoms Respiratory: Reports: No Symptoms Cardiovascular: Reports: No Symptoms GI/Abdominal: Reports: Decreased Appetite : Reports: No Symptoms Musculoskeletal: Reports: No Symptoms Skin: Reports: No Symptoms Neurological: Reports: Headache Psychiatric: Reports: Anxiety, Depression, Suicidal Ideation ED EXAM, BEHAVIORAL HEALTH - Physical Exam Exam: See Below Exam Limited By: No Limitations General Appearance: Alert, WD/WN, No Apparent Distress Eye Exam: Bilateral Eye: Normal Inspection Ears: Normal External Exam, Normal Canal, Hearing Grossly Normal Nose: Normal Inspection, No Blood Throat/Mouth: Normal Inspection, Normal Lips, Normal Oropharynx, Normal Voice, No Airway Compromise Head: Atraumatic, Normocephalic Neck: Normal Inspection Respiratory/Chest: No Respiratory Distress, Lungs Clear, Normal Breath Sounds, No Accessory Muscle Use Cardiovascular: Regular Rate, Rhythm GI/Abdominal: Soft, Non-Tender Back Exam: Normal Inspection. No: CVA Tenderness (R), CVA Tenderness (L) Extremities: Normal Inspection, Normal Range of Motion, Non-Tender, No Pedal Edema. No: Pedal Edema Neurological: Alert, Normal Mood/Affect, CN II-XII Intact, Normal Cognition, No Motor/Sensory Deficits, Oriented x 3 Psychiatric: Alert, Normal Affect, Normal Cognition, Normal Mood, Oriented Skin Exam: Warm, Dry, Intact, Normal color, No rash COURSE, BEHAVIORAL HEALTH COMP - Course Vital Signs: Last Vital Signs Temp 36.4 C 10/03/21 12:37 Pulse 87 10/03/21 12:37 Resp 20 10/03/21 12:37 BP 117/90 10/03/21 12:37 Pulse Ox 99 10/03/21 12:37 Orders, Labs, Meds: Active Orders 24 hr Category Date Time Status Suicide Precautions [RC] .Per Facility Policy Care 10/03/21 12:43 Active Isolation [COMM] Stat Oth 10/03/21 13:51 Ordered Laboratory Tests 10/03/21 10/03/21 10/03/21 Range/Units 12:30 12:30 12:31 WBC 12.7 H (4.5-11.0) K/uL RBC 5.19 (4.30-5.90) M/uL Hgb 15.1 H (12.0-15.0) g/dL Hct 42.0 (40.0-54.0) % MCV 81 (80-98) fL MCH 29 (27-31) pg MCHC 36 (32-36) % Plt Count 233 (150-400) K/uL Sodium (140-148) mmol/L Potassium (3.6-5.2) mmol/L Chloride (100-108) mmol/L Carbon Dioxide (21-32) mmol/L Anion Gap (5.0-14.0) mmol/L BUN (7-18) mg/dL Creatinine (0.8-1.3) mg/dL Est Cr Clr Drug Dosing mL/min Estimated GFR (MDRD) (>60) Glucose (74-106) mg/dL Calcium (8.5-10.1) mg/dL Urine Color (YELLOW) Urine Appearance (CLEAR) Urine pH (5.0-8.0) Ur Specific [place] (1.008-1.030) Urine Protein (NEGATIVE) mg/dL Urine Glucose (UA) (NEGATIVE) mg/dL Urine Ketones (NEGATIVE) mg/dL Urine Occult Blood (NEGATIVE) Urine Nitrite (NEGATIVE) Urine Bilirubin (NEGATIVE) Urine Urobilinogen (0.2-1.0) EU/dL Ur Leukocyte Esterase (NEGATIVE) Urine RBC (0-5) Urine WBC (0-5) Ur Epithelial Cells Amorphous Sediment Urine Bacteria Urine Mucus Salicylates 2.9 (2.0-20.0) mg/dL Urine Opiates Screen (NEGATIVE) Ur Oxycodone Screen (NEGATIVE) Urine Methadone Screen (NEGATIVE) Ur Propoxyphene Screen (NEGATIVE) Acetaminophen 0.0 L (10.0-30.0) ug/mL Ur Barbiturates Screen (NEGATIVE) Ur Tricyclics Screen (NEGATIVE) Ur Phencyclidine Scrn (NEGATIVE) Ur Amphetamine Screen (NEGATIVE) U Methamphetamines Scrn (NEGATIVE) Urine MDMA Screen (NEGATIVE) U Benzodiazepines Scrn (NEGATIVE) U Cocaine Metab Screen (NEGATIVE) U Marijuana (THC) Screen (NEGATIVE) Ethyl Alcohol mg/dL Influenza Type A RNA (NEGATIVE) RSV RNA (INAAT) (NEGATIVE) Influenza Type B RNA (NEGATIVE) SARS-CoV-2 RNA (DUSTIN) (NEGATIVE) 10/03/21 10/03/21 10/03/21 Range/Units 12:31 12:31 13:59 WBC (4.5-11.0) K/uL RBC (4.30-5.90) M/uL Hgb (12.0-15.0) g/dL Hct (40.0-54.0) % MCV (80-98) fL MCH (27-31) pg MCHC (32-36) % Plt Count (150-400) K/uL Sodium 140 (140-148) mmol/L Potassium 3.6 (3.6-5.2) mmol/L Chloride 104 (100-108) mmol/L Carbon Dioxide 22 (21-32) mmol/L Anion Gap 13.9 (5.0-14.0) mmol/L BUN 18 (7-18) mg/dL Creatinine 1.2 (0.8-1.3) mg/dL Est Cr Clr Drug Dosing 76.92 mL/min Estimated GFR (MDRD) > 60 (>60) Glucose 110 H (74-106) mg/dL Calcium 9.1 (8.5-10.1) mg/dL Urine Color (YELLOW) Urine Appearance (CLEAR) Urine pH (5.0-8.0) Ur Specific [place] (1.008-1.030) Urine Protein (NEGATIVE) mg/dL Urine Glucose (UA) (NEGATIVE) mg/dL Urine Ketones (NEGATIVE) mg/dL Urine Occult Blood (NEGATIVE) Urine Nitrite (NEGATIVE) Urine Bilirubin (NEGATIVE) Urine Urobilinogen (0.2-1.0) EU/dL Ur Leukocyte Esterase (NEGATIVE) Urine RBC (0-5) Urine WBC (0-5) Ur Epithelial Cells Amorphous Sediment Urine Bacteria Urine Mucus Salicylates (2.0-20.0) mg/dL Urine Opiates Screen (NEGATIVE) Ur Oxycodone Screen (NEGATIVE) Urine Methadone Screen (NEGATIVE) Ur Propoxyphene Screen (NEGATIVE) Acetaminophen (10.0-30.0) ug/mL Ur Barbiturates Screen (NEGATIVE) Ur Tricyclics Screen (NEGATIVE) Ur Phencyclidine Scrn (NEGATIVE) Ur Amphetamine Screen (NEGATIVE) U Methamphetamines Scrn (NEGATIVE) Urine MDMA Screen (NEGATIVE) U Benzodiazepines Scrn (NEGATIVE) U Cocaine Metab Screen (NEGATIVE) U Marijuana (THC) Screen (NEGATIVE) Ethyl Alcohol < 3 mg/dL Influenza Type A RNA Negative (NEGATIVE) RSV RNA (INAAT) Negative (NEGATIVE) Influenza Type B RNA Negative (NEGATIVE) SARS-CoV-2 RNA (DUSTIN) Negative (NEGATIVE) 10/03/21 10/03/21 Range/Units 15:04 15:04 WBC (4.5-11.0) K/uL RBC (4.30-5.90) M/uL Hgb (12.0-15.0) g/dL Hct (40.0-54.0) % MCV (80-98) fL MCH (27-31) pg MCHC (32-36) % Plt Count (150-400) K/uL Sodium (140-148) mmol/L Potassium (3.6-5.2) mmol/L Chloride (100-108) mmol/L Carbon Dioxide (21-32) mmol/L Anion Gap (5.0-14.0) mmol/L BUN (7-18) mg/dL Creatinine (0.8-1.3) mg/dL Est Cr Clr Drug Dosing mL/min Estimated GFR (MDRD) (>60) Glucose (74-106) mg/dL Calcium (8.5-10.1) mg/dL Urine Color Yellow (YELLOW) Urine Appearance Clear (CLEAR) Urine pH 5.5 (5.0-8.0) Ur Specific [place] 1.025 (1.008-1.030) Urine Protein Negative (NEGATIVE) mg/dL Urine Glucose (UA) Negative (NEGATIVE) mg/dL Urine Ketones 40 H (NEGATIVE) mg/dL Urine Occult Blood Negative (NEGATIVE) Urine Nitrite Negative (NEGATIVE) Urine Bilirubin Negative (NEGATIVE) Urine Urobilinogen 0.2 (0.2-1.0) EU/dL Ur Leukocyte Esterase Negative (NEGATIVE) Urine RBC 0-5 (0-5) Urine WBC 0-5 (0-5) Ur Epithelial Cells Not seen Amorphous Sediment Rare Urine Bacteria Rare Urine Mucus Not seen Salicylates (2.0-20.0) mg/dL Urine Opiates Screen Negative (NEGATIVE) Ur Oxycodone Screen Negative (NEGATIVE) Urine Methadone Screen Negative (NEGATIVE) Ur Propoxyphene Screen Negative (NEGATIVE) Acetaminophen (10.0-30.0) ug/mL Ur Barbiturates Screen Negative (NEGATIVE) Ur Tricyclics Screen Negative (NEGATIVE) Ur Phencyclidine Scrn Negative (NEGATIVE) Ur Amphetamine Screen Negative (NEGATIVE) U Methamphetamines Scrn Negative (NEGATIVE) Urine MDMA Screen Negative (NEGATIVE) U Benzodiazepines Scrn Negative (NEGATIVE) U Cocaine Metab Screen Negative (NEGATIVE) U Marijuana (THC) Screen Presumptive positive H (NEGATIVE) Ethyl Alcohol mg/dL Influenza Type A RNA (NEGATIVE) RSV RNA (INAAT) (NEGATIVE) Influenza Type B RNA (NEGATIVE) SARS-CoV-2 RNA (DUSTIN) (NEGATIVE) Medications Discontinued Medications Generic Name Dose Route Start Last Admin Trade Name Freq PRN Reason Stop Dose Admin Acetaminophen 1,000 mg 10/03/21 12:34 10/03/21 12:52 Acetaminophen 500 Mg Tab PO 10/03/21 12:35 1,000 mg ONETIME ONE Administration Ketorolac Tromethamine 30 mg 10/03/21 12:34 10/03/21 12:53 Ketorolac 30 Mg/Ml Sdv IM 10/03/21 12:35 30 mg ONETIME ONE Administration Medical Clearance: 10/03/21 13:18 Medically stable for psych facility Departure - Departure Time of Disposition: 17:10 Disposition: DC/Tfer to Psych Hosp/Unit 65 Condition: Fair Clinical Impression: Suicidal ideation Depression Qualifiers: Depression Type: major depressive disorder Major depression recurrence: recurrent Active/Remission status: currently active Major depression episode severity: severe Psychotic features: without psychotic features Qualified Code(s): F33.2 - Major depressive disorder, recurrent severe without psychotic features - Discharge Information *PRESCRIPTION DRUG MONITORING PROGRAM REVIEWED*: Not Applicable *COPY OF PRESCRIPTION DRUG MONITORING REPORT IN PATIENT MAXIMUS: Not Applicable Referrals: PCP,None [Primary Care Provider] - Forms: ED Department Discharge Additional Instructions: Go directly to the [facility] for admission. Sepsis Event Note (ED) - Focused Exam Vital Signs: Vital Signs Temp Pulse Resp BP Pulse Ox 10/03/21 12:37 36.4 C 87 20 117/90 99 10/03/21 11:52 36.4 C 87 20 117/90 99 - My Orders Last 24 Hours: My Active Orders 10/03/21 12:43 Suicide Precautions [RC] .Per Facility Policy 10/03/21 13:51 Isolation [COMM] Stat - Assessment/Plan Last 24 Hours: My Active Orders 10/03/21 12:43 Suicide Precautions [RC] .Per Facility Policy 10/03/21 13:51 Isolation [COMM] Stat
[2021-10-03] MEDS ORDERED: Ketorolac 30 MG/ML SDV IM ONE (12:34)
[2021-10-03] MEDS ORDERED: Acetaminophen 500 MG Tab PO ONE (12:34)
[2021-10-03 14:40] LABS: CORONAVIRUS COVID-19 NAA NEGATIVE (NEGATIVE)
[2021-10-03 18:29] VITALS: BP 130/95; PULSE 86
== END 2021-10-03 17:15 ==
LOC: JP.ED 11:52
DX: F33.2 Major depressive disorder, recurrent severe without psychotic features (principal); E66.9 Obesity, unspecified; Z68.34 Body mass index [BMI] 34.0-34.9, adult; Z20.822 Contact with and (suspected) exposure to COVID-19
CPT/HCPCS: 0241U; 36415; 80048; 80143; 80179; 80305; 80307; 81001; 85027; 96372; 99285; A9270; J1885